=== PATIENT | male | born 1945 | race Caucasian/White ===

== ENCOUNTER 2019-10-09 23:11 | Inpatient (IN) | payer MEDICARE, SELFPAY ==
--- NOTE | ~2019-10-09 | CT_ITS ---
EXAMINATION: CT chest abdomen pelvis wo con EXAM DATE: 10/10/2019 10:14 INDICATION: Nausea vomiting. Distended abdomen. Diarrhea. Burping and Belching. TECHNIQUE: Spiral CT of the chest, abdomen and pelvis was performed without contrast. Axial, kim l and sagittal images were reviewed. Coronal maximum intensity pixel images of chest reviewed. The dose-length product (DLP) for this examination was 1579.29 mGy-cm. The exposure was tailored accordi ng to patient size (auto mA exposure control), and iterative reconstruction (ASIR) was used as additi onal dose reduction technique. There is no prior study for comparison. FINDINGS: CHEST: The lungs are clear. Trace bilateral pleural effusions and trace pericardial effusion. Tra cheobronchial tree is patent. There is no mediastinal, hilar or axillary lymphadenopathy. There i s no pneumothorax. Heart normal in size. There is minimal coronary arterial calcification, arteri al sclerosis. 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 There is hepa tic steatosis. Spleen, pancreas, left adrenal gland are unremarkable. Gallbladder is unremarkable. No biliary obstruction. Bilateral renal cortical thinning, atrophy. Exophytic right renal lesion lik diane proteinaceous cyst measuring about 1.5 cm along the superior pole, unchanged compared to CT chest from 2016. There is 4.6 cm left renal lesion consistent with cyst. Small to moderate-sized bilateral inguinal fat-containing hernias. The prostate is unremarkable. The bladder is unremarkable. There is no retroperitoneal or pelvic lymphadenopathy. There is mild scattered arteriosclerotic disease. The appendix is not positively visualized. There is no pericecal inflammatory change to suggest appe ndicitis. The stomach and small bowel are unremarkable. There is colonic fluid, correlate for diar olimpia. There is mild scattered colonic diverticulosis. There is no adjacent inflammatory change to newton ggest diverticulitis. No free intraperitoneal gas. There are no osteoblastic or osteolytic lesions identified. IMPRESSION: 1. Colonic fluid. Consider enteritis. Correlate for diarrhea. 2. Right adrenal myelolipoma. 3. Small to moderate inguinal fat-containing hernias. 4. Scattered colonic diverticulosis. 5. Trace effusions. Reviewed, dictated and finalized at location A. TH AND SAFETY TECHNICIAN
--- NOTE | ~2019-10-09 | XR_ITS ---
EXAMINATION: XR chest 1V portable DATE: 10/09/2019 23:37 INDICATION: COPD presenting with shortness of breath TECHNIQUE: frontal view of the chest was obtained. COMPARISON: Chest radiograph dated 08/10/2017 FINDINGS: The lungs remain clear with no focal airspace opacities, pulmonary edema, pleural effusion or pneumot horax. The cardiomediastinal silhouette is normal. Fusion anteriorly of the right first and second ri bs. IMPRESSION: 1. No acute cardiopulmonary disease. Reviewed, dictated and finalized at location A. NESS INFORMATION ANALYST
--- NOTE | ~2019-10-09 | CT_ITS ---
EXAMINATION: CT abdomen pelvis wo con DATE: 10/13/2019 09:43 INDICATION: Abdominal distention. Constipation. TECHNIQUE: Computed tomography (CT) of the abdomen and pelvis was performed without intravenous contr ast. Automated exposure control and iterative reconstruction technique were employed. The dose-length product was 1245.70 mGy-cm. COMPARISON: CT abdomen and pelvis 10/10/2019 FINDINGS: The visualized portions of the lung bases demonstrate small pleural effusions and mild depe ndent atelectasis. The heart size is normal. There is a small pericardial effusion. There is diffuse hepatic steatosis. The spleen, gallbladder, pancreas, and left adrenal gland are normal. There is a 2 .0 cm mass of fat in right adrenal gland, consistent with a myelolipoma. There are cysts in the kidne ys measuring up to 5.1 cm in left kidney. There is no urolithiasis. There is prominent fat in the ing uinal canals that may be hernias. There is diverticulosis of the colon without evidence of diverticul itis. The appendix is normal. There are no dilated loops of bowel. There are no pathologically enlarg ed lymph nodes. There is no free intraperitoneal fluid. There is severe lower lumbar spondylosis. IMPRESSION: 1. Small pleural effusions. 2. Small pericardial effusion. 3. Diffuse hepatic steatosis. 4. Symmetric prominent fat in the inguinal canals that may be hernias. Reviewed, dictated and finalized at location A. OND GRINDER
--- NOTE | ~2019-10-09 | US_ITS ---
EXAMINATION: US retroperitoneal comp DATE: 10/10/2019 16:34 INDICATION: Bilateral renal lesions and renal cortical thinning TECHNIQUE: Multiple ultrasound grayscale images of the kidneys were obtained. COMPARISON: CT dated 10/10/2019 and 03/14/2016 FINDINGS: The right kidney measures 11.6 x 5.8 x 7.7 cm. The left kidney measures 11.5 x 5.7 x 6.3 cm. The kidn eys demonstrate normal echogenicity. 4.2 cm anechoic exophytic cyst at the lower pole of the left kid daisy. The smaller exophytic lesions at the upper pole of the right kidney on prior CT with fluid atten uation on an earlier contrast enhanced CT dated 03/14/2016 is not identified. There is no hydronephros is in either kidney. No stones identified. The bladder is normal. IMPRESSION: 1. Hydronephrosis. 2. 4.2 cm left renal cyst. The smaller exophytic cyst at the upper pole of the right kidney seen on p rior CT is not identified on the provided images. Reviewed, dictated and finalized at location A. NHOUSE MANAGER IMPRESSION: 1. Hydronephrosis. 2. 4.2 cm left renal cyst. The smaller exophytic cyst at the upper pole of the right kidney seen on prior CT is not identified on the provided images.
--- NOTE | 2019-10-09 23:30 | ECG_ITS ---
Measurements Intervals [place] Rate: 128 P: ME: 0 QRS: -20 QRSD: 97 T: 18 QT: 286 QTc: 418 Interpretive Statements SINUS TACHYCARDIA DELAYED PRECORDIAL R/S TRANSITION ABNORMAL ECG Electronically Signed On 10-10-2019 7:04:53 MAIL LIST PROCESSOR by Moy Jesus D.O.
[2019-10-09 23:50] VITALS: BP 112/69; PULSE 134; PULSE 135; RESP 20; TEMP 36.6; O2SAT 100
[2019-10-09 23:51] LABS: Basophils Absolute Auto 0.05 K/mm3 (0.00-0.10); Basophils Percent Auto 0.3 % (0.0-1.0); Eosinophils Absolute Auto 0.06 K/mm3 (0.02-0.50); Eosinophils Percent Auto 0.4 % (1.0-6.0); Hematocrit 42.8 % (37.0-46.0); Hemoglobin 14.2 g/dL (12.4-15.3); Immature Granulocyte Absolute 0.09 K/mm3 (0.00-0.00); Immature Granulocyte Percent A 0.6 % (0.0-0.0); Lymphocytes Absolute Auto 0.77 K/mm3 (1.10-4.50); Lymphocytes Percent Auto 5.2 % (18.0-42.0); Mean Corpuscular HGB Conc 33.2 g/dL (32.0-36.0); Mean Corpuscular Hemoglobin 30.5 pg (27.0-31.0); Mean Platelet Volume 10.2 fl (8.7-11.0); Monocytes Absolute Auto 0.36 K/mm3 (0.10-0.90); Monocytes Percent Auto 2.4 % (2.0-11.0); Neutrophils Absolute Auto 13.6 K/mm3 (1.7-7.2); Neutrophils Percent Auto 91.1 % (50.0-70.0); Platelet Count Result 292 K/mm3 (150-420); Red Blood Count 4.65 M/mm3 (4.70-6.10); Red Cell Distribution Width 13.4 % (11.6-14.4); White Blood Count 14.9 K/mm3 (4.8-10.8)
[2019-10-09] MEDS: methylPREDNISolone SOD SUCC 125 MG VIAL IV PUSH (23:55)
[2019-10-09] MEDS: ONDANSETRON INJ 4 MG/2 ML VIAL IV PUSH (23:55)
[2019-10-10] VITALS (18 sets, daily range): BP systolic 90–136; BP diastolic 51–70; PULSE 94–128; RESP 16–20; TEMP 36.2–37.2; O2SAT 91–98; BMI 35.3
[2019-10-10] MEDS: IPRATROPIUM 0.5 MG/ALBUTEROL SULFATE 2.5 MG AMPUL.NEB 3 ML INHALATION ×4 (00:02→18:20)
[2019-10-10] MEDS: SODIUM CHLORIDE 0.9% IV 1,000 ML 999 ML IV CONT ×2 (00:03→01:25)
[2019-10-10 00:10] LABS: BNP 125 pg/mL (0-100)
[2019-10-10 00:21] LABS: Lactic Acid 7.1 mmol/L (0.4-2.0)
[2019-10-10 00:27] LABS: Alanine Aminotransferase 74 U/L (16-63); Albumin Level 3.7 g/dL (3.4-5.0); Alkaline Phosphatase 36 U/L (46-116); Anion Gap 20.8 mmol/L (7-16); Aspartate Amino Transferase 37 U/L (15-37); Bilirubin,Total 0.9 mg/dL (0.00-1.00); Blood Urea Nitrogen 18 mg/dL (7-18); Carbon Dioxide 23 mmol/L (21-32); Chloride 101 mmol/L (98-108); Estimated CRCL calculation 32 ml/min; Estimated Glomerular Filt Rate 32; Glucose 175 mg/dL (70-99); Lipase 95 U/L (73-393); Osmolality Calculated 297 mOsm/kg (285-295); Potassium 3.8 mmol/L (3.5-5.1); Sodium 141 mmol/L (136-145); Total Protein 7.5 g/dL (6.4-8.2)
[2019-10-10 00:30] LABS: Thyroid Stimulating Hormone 4.48 uIU/mL (0.36-3.74); Troponin I < 0.02 ng/mL (0.00-0.056)
[2019-10-10 00:45] LABS: Influenza Control Valid (Valid)
--- NOTE | 2019-10-10 01:05 | ED.NAVMDI ---
HPI - Nausea/Vomiting/Diarrhea General Chief complaint: Nausea/Vomiting/Diarrhea Stated complaint: Nausea, Vomiting Source: patient and EMS Limitations: no limitations History of Present Illness HPI Narrative: This is a 74-year-old male other presents via EMS to the emergency department with sudden onset of diarrhea with nausea vomiting crampy abdominal pain has been having low-grade fever and chills with weakness started earlier this evening, does have a history of COPD/asthma history of diabetes and hypertension. The patient denies chest pain but is having some mild shortness of breath with a cough that is mildly productive of white sputum. MD elicited complaint: nausea, vomiting, diarrhea and abdominal pain Onset (ago): hour(s) Description of vomiting: watery Description of diarrhea: watery Associated nausea: Yes Associated abdominal pain: Yes Location of pain: diffuse Severity: moderate Quality: cramping Exacerbating factors: bowel movement and vomiting Relieving factors: none Context: recent antibiotic use Associated symptoms: fever/chills and nausea/vomiting Related Data Home Medications Medication Instructions Recorded Confirmed albuterol sulfate 90 mcg/actuation 2 puff INHALATION BID 09/04/19 10/09/19 aerosol inhaler alprazolam 0.5 mg tablet 0.5 mg PO DAILY 09/04/19 10/09/19 cyclobenzaprine 10 mg tablet 10 mg PO PRN PRN 09/04/19 10/09/19 finasteride 5 mg tablet 5 mg PO DAILY 09/04/19 10/09/19 fluticasone 250 mcg-salmeterol 50 1 inhalation INHALATION BID 09/04/19 10/09/19 mcg/dose blistr powdr for inhalation fluticasone propionate 50 2 spray NASAL BID 09/04/19 10/09/19 mcg/actuation nasal spray,suspension furosemide 40 mg tablet 40 mg PO QAM 09/04/19 10/09/19 glimepiride 2 mg tablet 2 mg PO QAM 09/04/19 10/09/19 hydrochlorothiazide 12.5 mg tablet 12.5 mg PO DAILY 09/04/19 10/09/19 ipratropium bromide 42 mcg (0.06 2 spray NASAL BID ml 09/04/19 10/09/19 %) nasal spray losartan 25 mg tablet 25 mg PO DAILY 09/04/19 10/09/19 meloxicam 15 mg tablet 15 mg PO HS 09/04/19 10/09/19 montelukast 10 mg tablet 10 mg PO DAILY 09/04/19 10/09/19 omeprazole 40 mg capsule,delayed 40 mg PO DAILY 09/04/19 10/09/19 release potassium chloride 10 mEq 10 meq PO DAILY 09/04/19 10/09/19 capsule,extended release prednisolone 5 mg tablet 5 mg PO DAILY 09/04/19 10/09/19 terazosin 10 mg capsule 10 mg PO DAILY 09/04/19 10/09/19 testosterone cypionate 200 mg/mL 200 mg IM MONTHLY 09/04/19 10/09/19 intramuscular oil Allergies Allergy/AdvReac Type Severity Reaction Status Date / Time shellfish derived Allergy Mild Unknown Verified 09/08/19 14:24 Review of Systems Review of Systems: All systems reviewed & are unremarkable except as noted in HPI and below PMFSH Past Medical History Medical History Asthma GERD (gastroesophageal reflux disease) Hyperlipidemia Obstructive sleep apnea Shortness of breath Type 2 diabetes mellitus Exam Const: General: no acute distress and alert Nutritional Appearance: obese Orientation/consciousness: patient oriented x3 HENMT: Head: normal to inspection Eyes: Cornea: corneas normal Pupils: Equal, round and reactive pupils present Neck: Neck: normal visual inspection and no lymphadenopathy Chest: Chest palpation & inspection: normal inspection of the chest Resp: Auscultation: wheezes Cardio: Rate: regular rate and tachycardic GI: GI Palp: Yes Tenderness to palpation present (GI) Percussion: Yes normal to percussion : Testes: Testes normal Back/Spine/Pelvis: Back: no CVA tenderness Skin: General skin exam: normal color Rashes: no rashes Neuro: General: patient oriented x3, moves all extremities and no meningeal signs Extrem: General: normal to inspection Psych: Appearance: grossly normal Mental Status: mental status grossly normal Course Vital Signs Vital signs: Vital Signs Temperature 36.6 C
[2019-10-10 01:28] LABS: Add Urine Microscopic? YES; Appearance Urine Sl Cloudy (Clear); Bilirubin Urine Negative (Negative); Blood Urine Negative (Negative); Color Urine Yellow (Yellow); Glucose Urine UA Negative (Negative); Ketones Urine Trace (Negative); Leukocyte Esterase Ur Negative LEU/UL (Negative); Nitrate Urine Negative (Negative); Protein Urine 2+ (Negative); Urobilinogen Urine 0.2 mg/dL (0.2-1.0)
[2019-10-10 01:35] LABS: Bacteria Urine Trace /hpf; RBC Urine 0-2 /hpf (0-2); Squamous Epithelial Cell Urine None seen /hpf (Few)
--- NOTE | 2019-10-10 01:39 | PC.NURSE ---
Call placed to floor for bed assignment for admit to tele.
--- NOTE | 2019-10-10 02:00 | ADMGEN ---
This patient, Cielo Lainez, was admitted to 2nd Floor Room 203-2. Patient oriented to hospital policies and general routines including ID bracelet, bed and alarms, visiting hours, pain management, procedures, bathroom and other care routines, personal items, smoking policy, room service/diet, and visiting hours. Information on how to activate the Rapid Response Team has been discussed. Patient encouraged to report perceived risks to care and to ask questions if they do not understand what they are told or what they should do.
[2019-10-10] MEDS: SODIUM CHLORIDE 0.9% IV 1,000 ML 100 ML IV CONT ×2 (02:38→13:00)
[2019-10-10 07:57] LABS: Glucose Point of Care 196 (65-105)
[2019-10-10 08:31] LABS: Basophils Absolute Auto 0.02 K/mm3 (0.00-0.10); Basophils Percent Auto 0.1 % (0.0-1.0); Hematocrit 38.5 % (37.0-46.0); Immature Granulocyte Absolute 0.08 K/mm3 (0.00-0.00); Immature Granulocyte Percent A 0.5 % (0.0-0.0); Lymphocytes Absolute Auto 0.27 K/mm3 (1.10-4.50); Lymphocytes Percent Auto 1.6 % (18.0-42.0); Mean Corpuscular HGB Conc 33.8 g/dL (32.0-36.0); Mean Corpuscular Hemoglobin 30.9 pg (27.0-31.0); Mean Corpuscular Volume 91.4 fL (78.0-102.0); Mean Platelet Volume 9.7 fl (8.7-11.0); Monocytes Absolute Auto 0.17 K/mm3 (0.10-0.90); Neutrophils Absolute Auto 16.8 K/mm3 (1.7-7.2); Neutrophils Percent Auto 96.8 % (50.0-70.0); Platelet Count Result 240 K/mm3 (150-420); Red Blood Count 4.21 M/mm3 (4.70-6.10); Red Cell Distribution Width 13.7 % (11.6-14.4); White Blood Count 17.3 K/mm3 (4.8-10.8)
[2019-10-10 08:46] LABS: Alanine Aminotransferase 70 U/L (16-63); Albumin Level 3.2 g/dL (3.4-5.0); Alkaline Phosphatase 28 U/L (46-116); Anion Gap 16.2 mmol/L (7-16); Aspartate Amino Transferase 42 U/L (15-37); Bilirubin,Total 0.6 mg/dL (0.00-1.00); Blood Urea Nitrogen 23 mg/dL (7-18); Calcium 7.8 mg/dL (8.5-10.1); Carbon Dioxide 23 mmol/L (21-32); Chloride 104 mmol/L (98-108); Estimated CRCL calculation 33 ml/min; Estimated Glomerular Filt Rate 34; Glucose 200 mg/dL (70-99); Osmolality Calculated 297 mOsm/kg (285-295); Potassium 4.2 mmol/L (3.5-5.1); Sodium 139 mmol/L (136-145); Total Protein 6.9 g/dL (6.4-8.2)
[2019-10-10 08:49] LABS: Lactic Acid Reflex 2.5 mmol/L (0.4-2.0)
--- NOTE | 2019-10-10 08:55 | ECG_ITS ---
Measurements Intervals [place] Rate: 110 P: 55 MS: 158 QRS: 23 QRSD: 101 T: 27 QT: 325 QTc: 440 Interpretive Statements SINUS TACHYCARDIA BORDERLINE R WAVE PROGRESSION, ANTERIOR LEADS BASELINE ARTIFACT- I, II, III ABNORMAL ECG Electronically Signed On 10-10-2019 11:28:36 ANTIQUE CLOCKS REPAIRER by Moy Jesus D.O.
[2019-10-10 09:36] LABS: Reflex Lactic Acid Yes or No Add Lactic
[2019-10-10 09:40] LABS: Troponin I < 0.02 ng/mL (0.00-0.056)
[2019-10-10] MEDS: FLUTICASONE PROPIONATE 0.05% NA SPR 16 GM BTL (*BKC) 2 SPRAY NASAL ×2 (09:50→17:15)
[2019-10-10] MEDS: SALMET XINAFT/FLUTIC PROPIN 250 MCG/50 MCG INH CAP 1 PUFF INHALATION ×2 (09:55→17:15)
--- NOTE | 2019-10-10 10:16 | PC.NURSE ---
Patient transported back to floor
[2019-10-10] MEDS: IPRATROPIUM NASAL SPRAY 0.06% 15 ML BOTTLE 2 SPRAY NASAL ×2 (10:24→17:15)
--- NOTE | 2019-10-10 10:52 | PC.NURSE ---
Pt walked 2 laps around second floor with standby assist of RN. Pt started belching some near the end of the second lap. Pt returned to room, to recliner. Feet up, call dasilva in reach. IV infusing as ordered. Pt remains NPO. Reminded to call with needs.
--- NOTE | 2019-10-10 10:55 | PC.NURSE ---
Pt walked two laps around second floor with standby assist of RN. Pt tolerated well, started belching some near the end of the walk. Back to room and in recliner, feet elevated. IV fluids infusing as ordered. Pt remains NPO. Call dasilva in reach, reminded to call with needs.
[2019-10-10] MEDS: PANTOPRAZOLE SODIUM IV 40 MG VIAL IV PUSH ×2 (11:15→21:01)
[2019-10-10 11:37] LABS: Glucose Point of Care 186 (65-105)
[2019-10-10 11:42] LABS: Magnesium 1.6 mg/dL (1.8-2.4); Phosphorus 2.3 mg/dL (2.6-4.7)
[2019-10-10 11:54] LABS: Lactic Acid 2.4 mmol/L (0.4-2.0)
--- NOTE | 2019-10-10 12:40 | PM.IMHP ---
H&P: HPI History of Present Illness Chief complaint: Nausea, Vomiting Narrative: Cielo Lainez is a 74 year old male who present to the ED via EMS with sudden onset of diarrhea with nausea, vomiting, and crampy abdominal pain. He has been having low-grade fever and chills with weakness that started earlier yesterday evening. He told me that he had continuous diarrhea from 8pm to 9pm without relief and that is what made him come in to the ED. He claims that he is always having episodes of abdominal distension, but that he usually treats himself and stays home. He reports that his diarrhea did not contain blood, but was dark, gravy-like, and watery. He reports that his last normal and formed BM was 2 days ago, on Sunday. He did report having some LLQ pain prior to the diarrhea starting. He did have recent antibiotic use and reported taking antibiotic for Sinus infection recently. His last colonoscopy was over 5 years ago and reports that 1 polyp was removed. He also had umbilical hernia surgery more than 5 years ago. He does have a history of COPD with asthma, diabetes and hypertension. The patient denies chest pain but is having some mild shortness of breath with a cough that is mildly productive of white sputum. Review of Systems Review of Systems: All systems reviewed & are unremarkable except as noted in HPI and below Constitutional: Constitutional: Reports as per HPI, Reports chills and Reports weakness Eyes: Eyes: Reports as per HPI and Reports no additional eye complaints ENT: Reports system reviewed and no additional complaints, except as documented, Reports as per HPI, Reports Normal hearing present, Reports nasal congestion and Reports nasal discharge Cardiovascular: Cardiovascular: Reports as per HPI, Denies chest pain, Denies pedal edema, Denies leg edema, Denies lightheadedness and Reports palpitations Respiratory: Respiratory: Reports as per HPI, Reports chest congestion, Reports cough, Denies hemoptysis, Reports dyspnea on exertion and Denies wheezing Gastrointestinal: Gastrointestinal: Reports as per HPI, Reports abdominal pain, Denies melena, Reports bloating, Denies hematochezia, Denies constipation, Reports heartburn, Denies diarrhea, Reports nausea, Denies vomiting and Denies hematemesis Comments: Had 2 small soft (not formed) green BMs yesterday. Stool cultures collected and processing in lab now. Genitourinary: Genitourinary: Reports no additional male genitourinary complaints, Reports as per HPI, Denies dysuria, Reports urinary frequency, Reports urinary hesitancy and Reports urinary incontinence Musculoskeletal: Musculoskeletal: Reports no additional musculoskeletal complaints, Reports as per HPI, Denies back pain, Denies arthralgias, Denies neck pain and Denies stiffness Integumentary/Breasts: Skin/Breast: Reports system reviewed and no additional complaints, except as docu, Reports as per HPI, Reports dry skin, Denies pruritus, Denies erythema, Denies rash, Denies skin pain and Denies unusual bruising Neurologic: Reports system reviewed and no additional complaints, except as documented, Reports as per HPI, Denies Abnormal speech present, Denies abnormal gait, Denies confusion, Denies vertigo, Denies headache(s) and Denies numbness Psychiatric: Psychiatric: Reports as per HPI and Reports anxiety Endocrine: Endocrine: Denies excessive sweating Allergic/Immunologic: Allergic/Immunologic: Denies wheezing PMFSH Past Medical History Medical History Asthma GERD (gastroesophageal reflux disease) Hyperlipidemia Obstructive sleep apnea Shortness of breath Type 2 diabetes mellitus Social History Social History Smoking packs per day: 2.5 Smoking cigarettes per day: 50.0 Years smoked: 30 Smoking pack-years: 75.00 Smoking status: Former smoker Tobacco type: cigarettes Smoking end date: 09/03/88 Alcohol intak
[2019-10-10 15:28] LABS: Occult Blood Negative (Negative)
--- NOTE | 2019-10-10 15:45 | PC.NURSE ---
Ultra Sound tech in room to perform ultra sound on kidneys. Patient transfered from chair to bed with sba. Transfered well.
[2019-10-10] MEDS: MAGNESIUM SULF 4 GM/WATER100ML 4 GM/100 ML BAG IVPB (15:49)
[2019-10-10 17:04] LABS: Glucose Point of Care 146 (65-105)
[2019-10-10] MEDS: SACCHAROMYCES BOULARDII 250 MG CAPSULE PO (18:21)
[2019-10-10] MEDS: SODIUM CHLORIDE 0.9% IV 500 ML IV CONT (18:28)
[2019-10-10] MEDS: SODIUM CHLORIDE 0.9% IV 1,000 ML 200 ML IV CONT (19:38)
[2019-10-10 21:06] LABS: Glucose Point of Care 148 (65-105)
--- NOTE | 2019-10-10 21:08 | PC.NURSE ---
Patient resting in bed watching tv. Respirations even and unlabored. Denies nausea, vomiting or abdominal pain. Abdomen firm and distrended, but non-tender. Denies pain/complaints/needs @ this time. IV NS infusing without difficulty. No distress noted. Call light and personal belongings within reach.
--- NOTE | 2019-10-10 21:52 | PC.NURSE ---
Patient resting in bed. Denies pain/complaints/needs @ this time. Respirations even and unlabored. Abdomen remains distended but patient denies tenderness. Urinal emptied of clear yellow urine. No distress noted. Call light and personal belongings within reach.
--- NOTE | 2019-10-10 23:25 | PC.NURSE ---
Patient appears to be sleeping by the rise and fall of his chest. IV NS infusing without difficulty. No distress noted. Call light in reach.
[2019-10-11] VITALS (13 sets, daily range): BP systolic 127–142; BP diastolic 65–77; PULSE 80–102; RESP 16–22; TEMP 36.2–36.7; O2SAT 95–98
[2019-10-11] MEDS: IPRATROPIUM 0.5 MG/ALBUTEROL SULFATE 2.5 MG AMPUL.NEB 3 ML INHALATION ×4 (00:03→18:10)
--- NOTE | 2019-10-11 01:10 | PC.NURSE ---
Patient appears to be sleeping by the rise and fall of his chest. Respirations even and unlabored. IV NS infusing without difficulty to site in right hand. No distress noted. Call light in reach.
[2019-10-11] MEDS: SODIUM CHLORIDE 0.9% IV 1,000 ML 200 ML IV CONT ×2 (01:26→08:24)
[2019-10-11 05:36] LABS: Hematocrit 33.7 % (37.0-46.0); Hemoglobin 11.3 g/dL (12.4-15.3); Mean Corpuscular HGB Conc 33.5 g/dL (32.0-36.0); Mean Corpuscular Hemoglobin 30.9 pg (27.0-31.0); Mean Corpuscular Volume 92.1 fL (78.0-102.0); Mean Platelet Volume 9.3 fl (8.7-11.0); Platelet Count Result 207 K/mm3 (150-420); Red Blood Count 3.66 M/mm3 (4.70-6.10); Red Cell Distribution Width 14.3 % (11.6-14.4); White Blood Count 13.8 K/mm3 (4.8-10.8)
[2019-10-11 05:56] LABS: Lactic Acid 2.7 mmol/L (0.4-2.0)
[2019-10-11] MEDS: LEVOTHYROXINE SODIUM 12.5 MCG TABLET PO (06:02)
[2019-10-11 06:05] LABS: Alanine Aminotransferase 68 U/L (16-63); Alkaline Phosphatase 24 U/L (46-116); Anion Gap 14.7 mmol/L (7-16); Aspartate Amino Transferase 44 U/L (15-37); Bilirubin,Total 0.4 mg/dL (0.00-1.00); Blood Urea Nitrogen 30 mg/dL (7-18); Calcium 7.2 mg/dL (8.5-10.1); Carbon Dioxide 23 mmol/L (21-32); Chloride 108 mmol/L (98-108); Estimated CRCL calculation 36 ml/min; Estimated Glomerular Filt Rate 37; Glucose 119 mg/dL (70-99); Osmolality Calculated 301 mOsm/kg (285-295); Phosphorus 2.3 mg/dL (2.6-4.7); Potassium 3.7 mmol/L (3.5-5.1); Sodium 142 mmol/L (136-145); Total Protein 6.4 g/dL (6.4-8.2); Troponin I < 0.02 ng/mL (0.00-0.056)
[2019-10-11 08:03] LABS: Glucose Point of Care 115 (65-105)
--- NOTE | 2019-10-11 08:46 | PC.NURSE ---
Ambulated patient x2 around floor. Tolerated well. Clear liquid diet tolerated well.
[2019-10-11] MEDS: SODIUM CHLORIDE 0.9% IV 1,000 ML 100 ML IV CONT ×2 (09:14→17:01)
[2019-10-11] MEDS: IPRATROPIUM NASAL SPRAY 0.06% 15 ML BOTTLE 2 SPRAY NASAL ×2 (09:15→16:55)
[2019-10-11] MEDS: PANTOPRAZOLE SODIUM IV 40 MG VIAL IV PUSH ×2 (09:15→21:05)
[2019-10-11] MEDS: TERAZOSIN HCL 5 MG CAPSULE 10 MG PO (09:15)
[2019-10-11] MEDS: LORATADINE 10 MG TABLET PO (09:16)
[2019-10-11] MEDS: FINASTERIDE 5 MG TABLET PO (09:16)
[2019-10-11] MEDS: predniSONE 5 MG TABLET PO (09:16)
[2019-10-11] MEDS: POTASSIUM/PHOSPHORUS/SODIUM 1.5 GM PACKET 1 PACKET PO (09:16)
[2019-10-11] MEDS: LOSARTAN POTASSIUM 25 MG TABLET PO (09:16)
[2019-10-11] MEDS: GLIMEPIRIDE 2 MG TABLET PO (09:16)
[2019-10-11] MEDS: MONTELUKAST SODIUM 10 MG TABLET PO (09:16)
[2019-10-11] MEDS: SACCHAROMYCES BOULARDII 250 MG CAPSULE PO ×2 (09:17→16:54)
[2019-10-11] MEDS: SALMET XINAFT/FLUTIC PROPIN 250 MCG/50 MCG INH CAP 1 PUFF INHALATION ×2 (09:19→16:56)
[2019-10-11] MEDS: FLUTICASONE PROPIONATE 0.05% NA SPR 16 GM BTL (*BKC) 2 SPRAY NASAL ×2 (09:21→16:54)
--- NOTE | 2019-10-11 09:25 | PM.IMPN ---
Progress Note: A&P Assessment and Plan (1) Sepsis: Qualifiers: Hepatic coma status: without hepatic coma Sepsis acute organ dysfunction status: with acute organ dysfunction Sepsis type: sepsis due to unspecified organism Severe sepsis acute organ dysfunction type: acute liver failure Severe sepsis shock status: without septic shock Qualified Code(s): A41.9 - Sepsis, unspecified organism; R65.20 - Severe sepsis without septic shock; K72.00 - Acute and subacute hepatic failure without coma <Kerline Paul NP - Last Filed: 10/11/19 14:34> Code(s): A41.9 - Sepsis, unspecified organism <Kerline Paul NP - Last Filed: 10/11/19 14:34> Status: Acute <Kerline Paul NP - Last Filed: 10/11/19 14:34> Assessment and Plan: Encouraged incentive spirometer. Started on IV Zosyn now due to concern for possible bowel perforation, pending CT results. Nausea and vomiting now controlled. Crampy and gassy abdominal pain persists. Ordered NG placement, after 3 attempts, unable due to previous Sinus reconstruction surgery No fevers noted. WBC was 14.9 at admission, then 17.3, and now 13.8 today. Repeating labs in morning. Patient reports 2 small soft BMs since admission and another moderate sized BM today. Weakness has resolved - he is ambulating around entire 2nd floor of hospital today with no difficulties. Persistent abdominal distension, Ordered stool CDiff culture (no toxin present) and other stool cultures remain pending. LLQ pain resolved. Gave patient referral to Colorectal physician for getting colonoscopy completed and to F/U with. Changed to NPO status and increased his IVFs from 100ml/hr to 200 ml/hr. <Kerline Paul NP - Last Filed: 10/11/19 14:34> (2) Diarrhea: Qualifiers: Diarrhea type: unspecified type Qualified Code(s): R19.7 - Diarrhea, unspecified <Kerline Pual NP - Last Filed: 10/11/19 14:34> Code(s): R19.7 - Diarrhea, unspecified <Kerline Paul NP - Last Filed: 10/11/19 14:34> Status: Acute <Kerline Paul NP - Last Filed: 10/11/19 14:34> Assessment and Plan: continuous diarrhea has RESOLVED. Stool cultures ordered and collected. C-Diff + antigen and negative for Toxin. So not an active/current C.Diff infection. Added Probiotics to his medication regime. Completed patient education regarding how C.Diff infections occur, discussed eating yogurt and taking probiotics at home, and discussed patient's history of antibiotic use. Stool occult (-) negative for blood. <Kerline Paul NP - Last Filed: 10/11/19 14:34> (3) Abdominal distension: Code(s): R14.0 - Abdominal distension (gaseous) <Kerline Paul NP - Last Filed: 10/11/19 14:34> Status: Acute <Kerline Paul NP - Last Filed: 10/11/19 14:34> Assessment and Plan: UNRESOLVED. Ordered and attempted NG tube placement on 3 occasions. But patient has had extensive sinus/nasal reconstructive surgery due to past broken nose with deviated septum, and plastic dilator remains in his left nostril. Unable to pass a 16 Jamaican or a 12 Jamaican NG tubing. Encouraged patient to start ambulating hourly. Ordered CT scan without contrast (chest, Abd, Pelvis) - no ileus or blockage noted by radiologist IVFs at 100ml/hr Tolerating Clear liquid diet. Examined a Stool of his this afternoon - appeared constipated with small pellet sized BMs. Ordered Mag Citrate x 1 to get bowels moving and decompressed. Encouraged patient to continue hourly ambulation. Started on daily Senna. <Kerline Paul NP - Last Filed: 10/11/19 14:34> (4) Acute renal failure: Code(s): N17.9 - Acute kidney failure, unspecified <Kerline Paul NP - Last Filed: 10/11/19 14:34> Status: Acute <Kerline Paul NP - Last Filed: 10/11/19 14:34> Assessment and Plan: IMPROVING. Creatinine and GFRs elevated at admissi
[2019-10-11 09:27] LABS: Magnesium 2.8 mg/dL (1.8-2.4)
[2019-10-11] MEDS: FAMOTIDINE 20 MG/ISO 50 ML 20 MG/50 ML BAG 100 MG IVPB (09:58)
--- NOTE | 2019-10-11 10:28 | PC.NURSE ---
Patient ambulating around floor, independently
[2019-10-11 11:31] LABS: Glucose Point of Care 94 (65-105)
[2019-10-11 11:55] LABS: Lactate Dehydrogenase 226 U/L (85-227)
[2019-10-11] MEDS: METOCLOPRAMIDE HCL INJ 10 MG/2 ML VIAL IV PUSH ×2 (12:52→18:10)
[2019-10-11] MEDS: MAGNESIUM CITRATE 300 ML BTL 150 ML PO (15:31)
[2019-10-11] MEDS: FAMOTIDINE 20 MG/ISO 50 ML 20 MG/50 ML BAG 50 MG IVPB (16:49)
[2019-10-11 16:54] LABS: Glucose Point of Care 66 (65-105)
[2019-10-11] MEDS: SENNA/DOCUSATE SODIUM TABLET 1 TAB PO (21:05)
[2019-10-11 21:22] LABS: Glucose Point of Care 106 (65-105)
[2019-10-12] VITALS (13 sets, daily range): BP systolic 144–169; BP diastolic 73–84; PULSE 78–104; RESP 14–20; TEMP 36.3–36.8; O2SAT 95–97
[2019-10-12] MEDS: METOCLOPRAMIDE HCL INJ 10 MG/2 ML VIAL IV PUSH ×5 (00:01→23:46)
[2019-10-12] MEDS: IPRATROPIUM 0.5 MG/ALBUTEROL SULFATE 2.5 MG AMPUL.NEB 3 ML INHALATION ×5 (00:01→23:45)
[2019-10-12] MEDS: SODIUM CHLORIDE 0.9% IV 1,000 ML 100 ML IV CONT (04:19)
[2019-10-12 05:24] LABS: Hematocrit 30.7 % (37.0-46.0); Hemoglobin 10.3 g/dL (12.4-15.3); Mean Corpuscular HGB Conc 33.6 g/dL (32.0-36.0); Mean Corpuscular Volume 92.5 fL (78.0-102.0); Mean Platelet Volume 9.7 fl (8.7-11.0); Platelet Count Result 180 K/mm3 (150-420); Red Blood Count 3.32 M/mm3 (4.70-6.10); Red Cell Distribution Width 14.3 % (11.6-14.4); White Blood Count 10.1 K/mm3 (4.8-10.8)
[2019-10-12 05:46] LABS: Lactic Acid 0.9 mmol/L (0.4-2.0)
[2019-10-12] MEDS: LEVOTHYROXINE SODIUM 25 MCG TABLET 12.5 MCG PO (06:06)
[2019-10-12 06:13] LABS: Alanine Aminotransferase 67 U/L (16-63); Albumin Level 2.8 g/dL (3.4-5.0); Alkaline Phosphatase 21 U/L (46-116); Anion Gap 15.5 mmol/L (7-16); Aspartate Amino Transferase 48 U/L (15-37); Bilirubin,Total 0.5 mg/dL (0.00-1.00); Blood Urea Nitrogen 14 mg/dL (7-18); Calcium 6.8 mg/dL (8.5-10.1); Carbon Dioxide 22 mmol/L (21-32); Chloride 110 mmol/L (98-108); Estimated CRCL calculation 56 ml/min; Estimated Glomerular Filt Rate > 60; Glucose 61 mg/dL (70-99); Osmolality Calculated 296 mOsm/kg (285-295); Potassium 3.5 mmol/L (3.5-5.1); Sodium 144 mmol/L (136-145); Total Protein 5.7 g/dL (6.4-8.2)
[2019-10-12 06:54] LABS: Glucose Point of Care 68 (65-105)
[2019-10-12] MEDS: IPRATROPIUM NASAL SPRAY 0.06% 15 ML BOTTLE 2 SPRAY NASAL ×2 (09:14→16:48)
[2019-10-12] MEDS: FLUTICASONE PROPIONATE 0.05% NA SPR 16 GM BTL (*BKC) 2 SPRAY NASAL ×2 (09:14→16:48)
[2019-10-12] MEDS: SALMET XINAFT/FLUTIC PROPIN 250 MCG/50 MCG INH CAP 1 PUFF INHALATION ×2 (09:14→16:50)
[2019-10-12] MEDS: FAMOTIDINE 20 MG/ISO 50 ML 20 MG/50 ML BAG 50 MG IVPB ×2 (09:15→16:48)
[2019-10-12] MEDS: SACCHAROMYCES BOULARDII 250 MG CAPSULE PO ×2 (09:15→16:50)
[2019-10-12] MEDS: TERAZOSIN HCL 5 MG CAPSULE 10 MG PO (09:16)
[2019-10-12] MEDS: PANTOPRAZOLE SODIUM IV 40 MG VIAL IV PUSH ×2 (09:16→21:09)
[2019-10-12] MEDS: POTASSIUM/PHOSPHORUS/SODIUM 1.5 GM PACKET 1 PACKET PO (09:16)
[2019-10-12] MEDS: LOSARTAN POTASSIUM 25 MG TABLET PO (09:16)
[2019-10-12] MEDS: MONTELUKAST SODIUM 10 MG TABLET PO (09:16)
[2019-10-12] MEDS: FINASTERIDE 5 MG TABLET PO (09:17)
[2019-10-12] MEDS: predniSONE 5 MG TABLET PO (09:17)
[2019-10-12] MEDS: GLIMEPIRIDE 2 MG TABLET PO (09:17)
[2019-10-12] MEDS: LORATADINE 10 MG TABLET PO (09:17)
--- NOTE | 2019-10-12 10:30 | PCPTNOTE ---
Pt. refused treatment this a.m. He reports that he has been walking in room without assist. Talked with Kerline Paul NP, and felt pt. is appropriate for discharge from PT.
[2019-10-12 11:25] LABS: Amylase 28 U/L (25-115); Lipase 54 U/L (73-393)
[2019-10-12 11:34] LABS: Magnesium 2.2 mg/dL (1.8-2.4)
[2019-10-12] MEDS: PSYLLIUM POWDER PACKET 1 PACKET PO (11:39)
[2019-10-12 11:47] LABS: Glucose Point of Care 55 (65-105)
[2019-10-12 11:58] LABS: Lactate Dehydrogenase 205 U/L (85-227)
[2019-10-12 12:07] LABS: BNP 108 pg/mL (0-100)
[2019-10-12 12:30] LABS: Glucose Point of Care 68 (65-105)
--- NOTE | 2019-10-12 14:22 | WPDPN ---
Progress Note: A&P Assessment and Plan (1) Sepsis: Qualifiers: Hepatic coma status: without hepatic coma Sepsis acute organ dysfunction status: with acute organ dysfunction Sepsis type: sepsis due to unspecified organism Severe sepsis acute organ dysfunction type: acute liver failure Severe sepsis shock status: without septic shock Qualified Code(s): A41.9 - Sepsis, unspecified organism; R65.20 - Severe sepsis without septic shock; K72.00 - Acute and subacute hepatic failure without coma <Kerline Paul NP - Last Filed: 10/12/19 16:26> Code(s): A41.9 - Sepsis, unspecified organism <Kerline Paul NP - Last Filed: 10/12/19 16:26> Status: Acute <Kerline Paul NP - Last Filed: 10/12/19 16:26> Assessment and Plan: Encouraged incentive spirometer. Continue on IV Zosyn , would Discharge on PO Cipro with PO Flagyl. Nausea and vomiting now controlled. No pain. Some burping and flatulence remains. Despite his frequent ambulation, clear liquid diet, and now normal lactate level and normal WBC levels; he continues to have a rounded, distended, taunt, intermittently hypoactive, and firm abdomen. notified by radiologist that we are unable to complete a Fluoroscopy small bowel follow through study or any study with barium. Will plan for a CT scan in the morning prior to discharge, after he advances to regular diet today. Will also repeat Lactic acid level in morning as well to confirm no worsening after restarting a regular diet. Today was the first day of a normal lactic level. LFTs have improved. LDH is normal. -unable to place NG due to previous Sinus reconstruction surgery No fevers noted. WBC was 14.9 at admission, then 17.3, and now 10.1 today. Repeating labs in morning. Patient reports 3 small BMs since Mag Citrate, but still not a normal formed BM. Weakness has resolved - he is ambulating around entire 2nd floor of hospital today with no difficulties. Persistent abdominal distension, Stool cultures remain pending. LLQ pain resolved. Gave patient referral to Colorectal physician for getting colonoscopy completed and to F/U with. Gave patient information to a GI physician at [place] to F/U with. IVFs stopped. <Kerline Paul NP - Last Filed: 10/12/19 16:26> (2) Diarrhea: Qualifiers: Diarrhea type: unspecified type Qualified Code(s): R19.7 - Diarrhea, unspecified <Kerline Paul NP - Last Filed: 10/12/19 16:26> Code(s): R19.7 - Diarrhea, unspecified <Kerline Paul NP - Last Filed: 10/12/19 16:26> Status: Acute <Kerline Paul NP - Last Filed: 10/12/19 16:26> Assessment and Plan: continuous diarrhea has RESOLVED. Stool cultures remain pending. C-Diff + antigen and negative for Toxin. So not an active/current C.Diff infection. Added Probiotics to his medication regime. Stool occult (-) negative for blood. Advancing diet as tolerated. Had 3 BMs today, but no normal formed BM yet. <Kerline Paul NP - Last Filed: 10/12/19 16:26> (3) Abdominal distension: Code(s): R14.0 - Abdominal distension (gaseous) <Kerline Paul NP - Last Filed: 10/12/19 16:26> Status: Acute <Kerline Paul NP - Last Filed: 10/12/19 16:26> Assessment and Plan: UNRESOLVED. Ordered and attempted NG tube placement on 3 occasions. But patient has had extensive sinus/nasal reconstructive surgery due to past broken nose with deviated septum, and plastic dilator remains in his left nostril. Unable to pass a 16 Tajik or a 12 Tajik NG tubing. Encouraged patient to start ambulating hourly. Ordered CT scan without contrast as patient's abdomen remains extremely distended, taunt, and firm; intermittently sounds are hypoactive. Advancing his diet as tolerated. Encouraged patient to continue hourly ambulation. Started on daily Senna, Pepcid, Protonix, and Daily Metamucil fiber. <Kerline Paul
[2019-10-12 16:01] LABS: Hemoglobin A1C 6.4 % (<5.7)
[2019-10-12 16:38] LABS: Glucose Point of Care 56 (65-105)
--- NOTE | 2019-10-12 21:01 | P.PNCROSS_ITS ---
Event Note Event Note Event Note: For this patient encounter, I reviewed the MARKETING MANAGER or PA documentation, treatment plan, and medical decision making; and I had [id number] time with this patient. Abdomen is distended but nontender.
--- NOTE | 2019-10-12 21:01 | PM.EVENT ---
Event Note Event Note Event Note: For this patient encounter, I reviewed the MERGERS [employer] ACQUISITIONS BANKER or PA documentation, treatment plan, and medical decision making; and I had [id number] time with this patient. Abdomen is distended but nontender.
[2019-10-12] MEDS: SENNA/DOCUSATE SODIUM TABLET 1 TAB PO (21:08)
[2019-10-12 21:14] LABS: Glucose Point of Care 54 (65-105)
[2019-10-12 21:35] LABS: Glucose 63 mg/dL (70-99)
[2019-10-12 21:54] LABS: Glucose Point of Care 46 (65-105)
[2019-10-12 22:32] LABS: Glucose Point of Care 67 (65-105)
[2019-10-12 23:07] LABS: Glucose Point of Care 66 (65-105)
--- NOTE | 2019-10-12 23:09 | PC.NURSE ---
MD NOTIFIED OF PATIENT'S CONSISTENTLY LOW BLOOD SUGAR READINGS. MD STATES TO GIVE THE PATIENT SOMETHING HIGH IN FAT LIKE PEANUT BUTTER AND CRACKERS. ALSO STATES THAT PT IS ON A LONG ACTING PO HYPOGLYCEMIC THAT HAS NOT BEEN FULLY METABOLIZED OUT OF HIS SYSTEM YET.
[2019-10-13] VITALS: BP 144/73; PULSE 94; RESP 12; TEMP 36.3; O2SAT 96
[2019-10-13 00:19] LABS: Glucose 60 mg/dL (70-99)
[2019-10-13 00:21] LABS: Glucose Point of Care 63 (65-105)
[2019-10-13] MEDS: DEXTROSE 50% 25 GM/50 ML SYRINGE IV PUSH (01:10)
[2019-10-13 01:31] LABS: Glucose Point of Care 106 (65-105)
[2019-10-13 03:03] LABS: Glucose Point of Care 74 (65-105)
[2019-10-13] MEDS: IPRATROPIUM 0.5 MG/ALBUTEROL SULFATE 2.5 MG AMPUL.NEB 3 ML INHALATION (05:44)
[2019-10-13 05:45] VITALS: PULSE 100; RESP 18
[2019-10-13 05:52] VITALS: PULSE 99; RESP 16
[2019-10-13] MEDS: METOCLOPRAMIDE HCL INJ 10 MG/2 ML VIAL IV PUSH ×2 (06:19→12:45)
[2019-10-13] MEDS: LEVOTHYROXINE SODIUM 25 MCG TABLET 12.5 MCG PO (06:19)
[2019-10-13] MEDS: DEXTROSE 5%/0.45% SOD CHL 1,000 ML 100 ML IV CONT (06:38)
[2019-10-13 07:04] LABS: Glucose Point of Care 58 (65-105)
[2019-10-13 07:37] VITALS: BP 166/80; PULSE 93; RESP 18; TEMP 36.7; O2SAT 96
--- NOTE | 2019-10-13 07:41 | PC.NURSE ---
Sitting in chair at this time, denies needs, skin warm and dry, fluids infusing
[2019-10-13 08:41] LABS: Hematocrit 32.3 % (37.0-46.0); Mean Corpuscular HGB Conc 34.1 g/dL (32.0-36.0); Mean Corpuscular Hemoglobin 31.2 pg (27.0-31.0); Mean Corpuscular Volume 91.5 fL (78.0-102.0); Mean Platelet Volume 9.3 fl (8.7-11.0); Platelet Count Result 198 K/mm3 (150-420); Red Blood Count 3.53 M/mm3 (4.70-6.10); Red Cell Distribution Width 14.3 % (11.6-14.4)
[2019-10-13 08:51] LABS: Alanine Aminotransferase 89 U/L (16-63); Alkaline Phosphatase 28 U/L (46-116); Anion Gap 14.3 mmol/L (7-16); Aspartate Amino Transferase 62 U/L (15-37); Bilirubin,Total 0.8 mg/dL (0.00-1.00); Blood Urea Nitrogen 11 mg/dL (7-18); Calcium 7.5 mg/dL (8.5-10.1); Carbon Dioxide 24 mmol/L (21-32); Chloride 105 mmol/L (98-108); Estimated CRCL calculation 56 ml/min; Estimated Glomerular Filt Rate > 60; Glucose 87 mg/dL (70-99); Osmolality Calculated 288 mOsm/kg (285-295); Potassium 3.3 mmol/L (3.5-5.1); Sodium 140 mmol/L (136-145); Total Protein 6.2 g/dL (6.4-8.2)
[2019-10-13] MEDS: FLUTICASONE PROPIONATE 0.05% NA SPR 16 GM BTL (*BKC) 2 SPRAY NASAL ×2 (08:58→18:00)
[2019-10-13] MEDS: SALMET XINAFT/FLUTIC PROPIN 250 MCG/50 MCG INH CAP 1 PUFF INHALATION ×2 (08:58→18:00)
[2019-10-13] MEDS: TERAZOSIN HCL 5 MG CAPSULE 10 MG PO (08:58)
[2019-10-13] MEDS: IPRATROPIUM NASAL SPRAY 0.06% 15 ML BOTTLE 2 SPRAY NASAL ×2 (08:58→18:00)
[2019-10-13] MEDS: FINASTERIDE 5 MG TABLET PO (08:59)
[2019-10-13] MEDS: LOSARTAN POTASSIUM 25 MG TABLET PO (08:59)
[2019-10-13] MEDS: predniSONE 5 MG TABLET PO ×2 (08:59→12:45)
[2019-10-13] MEDS: SACCHAROMYCES BOULARDII 250 MG CAPSULE PO ×2 (09:00→18:00)
[2019-10-13] MEDS: LORATADINE 10 MG TABLET PO (09:00)
[2019-10-13] MEDS: MONTELUKAST SODIUM 10 MG TABLET PO (09:00)
--- NOTE | 2019-10-13 09:06 | PC.NURSE ---
To imaging via wheel chair
--- NOTE | 2019-10-13 09:35 | PC.NURSE ---
Returned from therapy
[2019-10-13] MEDS: FAMOTIDINE 20 MG/ISO 50 ML 20 MG/50 ML BAG 50 MG IVPB (09:47)
[2019-10-13] MEDS: PANTOPRAZOLE SODIUM IV 40 MG VIAL IV PUSH ×2 (09:47→20:57)
[2019-10-13] MEDS: POTASSIUM/PHOSPHORUS/SODIUM 1.5 GM PACKET 1 PACKET PO (09:48)
[2019-10-13] MEDS: PSYLLIUM POWDER PACKET 1 PACKET PO (09:48)
[2019-10-13 11:15] LABS: Glucose Point of Care 93 (65-105)
--- NOTE | 2019-10-13 11:15 | PC.NURSE ---
Bedside glucose completed 97, denies needs, fluids discontinued
[2019-10-13] MEDS: POTASSIUM CHLORIDE 20 MEQ TABLET 40 MEQ PO (11:20)
[2019-10-13 12:11] LABS: Glucose Point of Care 85 (65-105)
--- NOTE | 2019-10-13 12:25 | P.PNIM_ITS ---
Progress Note: A&P Assessment and Plan (1) Sepsis: Qualifiers: Hepatic coma status: without hepatic coma Sepsis acute organ dysfunction status: with acute organ dysfunction Sepsis type: sepsis due to unspecified organism Severe sepsis acute organ dysfunction type: acute liver failure Severe sepsis shock status: without septic shock Qualified Code(s): A41.9 - Sepsis, unspecified organism; R65.20 - Severe sepsis without septic shock; K72.00 - Acute and subacute hepatic failure without coma Code(s): A41.9 - Sepsis, unspecified organism Status: Acute Assessment and Plan: RESOLVED. Encouraged incentive spirometer. Continue on IV Zosyn , would Discharge on PO Cipro with PO Flagyl. Nausea and vomiting now controlled. No pain. Some burping and flatulence remains. Despite his frequent ambulation, clear liquid diet, and now normal lactate level and normal WBC levels; he continues to have a rounded, distended, taunt, intermittently hypoactive, and firm abdomen. notified by radiologist that we are unable to complete a Fluoroscopy small bowel follow through study or any study with barium. Will plan for a CT scan in the morning prior to discharge, after he advances to regular diet today. Will also repeat Lactic acid level in morning as well to confirm no worsening after restarting a regular diet. Today was the first day of a normal lactic level. LFTs have improved. LDH is normal. -unable to place NG due to previous Sinus reconstruction surgery No fevers noted. WBC was 14.9 at admission, then 17.3, and now 10.1 today. Repeating labs in morning. Patient reports 3 small BMs since Mag Citrate, but still not a normal formed BM. Weakness has resolved - he is ambulating around entire 2nd floor of hospital today with no difficulties. Persistent abdominal distension, Stool cultures remain pending. LLQ pain resolved. Gave patient referral to Colorectal physician for getting colonoscopy completed and to F/U with. Gave patient information to a GI physician at [place] to F/U with. IVFs stopped. (2) Diarrhea: Qualifiers: Diarrhea type: unspecified type Qualified Code(s): R19.7 - Diarrhea, unspecified Code(s): R19.7 - Diarrhea, unspecified Status: Acute Assessment and Plan: RESOLVED. Stool cultures remain pending. C-Diff + antigen and negative for Toxin. So not an active/current C.Diff infection. Added Probiotics to his medication regime. Stool occult (-) negative for blood. Advancing diet as tolerated. Had 3 BMs today, but no normal formed BM yet. (3) Abdominal distension: Code(s): R14.0 - Abdominal distension (gaseous) Status: Acute Assessment and Plan: BASELINE. CHRONIC. Ordered and attempted NG tube placement on 3 occasions. But patient has had extensive sinus/nasal reconstructive surgery due to past broken nose with deviated septum, and plastic dilator remains in his left nostril. Unable to pass a 16 Cameroonian or a 12 Cameroonian NG tubing. Encouraged patient to start ambulating hourly. Ordered CT scan without contrast as patient's abdomen remains extremely distended, taunt, and firm; intermittently sounds are hypoactive. Advancing his diet as tolerated. Encouraged patient to continue hourly ambulation. Started on daily Senna, Pepcid, Protonix, and Daily Metamucil fiber. (4) Acute renal failure: Code(s): N17.9 - Acute kidney failure, unspecified Status: Acute Assessment and Plan: RESOLVED. Creatinine and GFRs elevated at admission. Persistent low urine output. Renal lesions bilaterally foun
[2019-10-13] MEDS: FUROSEMIDE INJ 40 MG/4 ML VIAL IV PUSH (12:46)
--- NOTE | 2019-10-13 12:55 | PC.NURSE ---
Up in farrar walking, hermila hose in place
[2019-10-13 13:10] LABS: Glucose Point of Care 86 (65-105)
--- NOTE | 2019-10-13 13:49 | PC.NURSE ---
JARED bruce removed per patient request, states too tight
[2019-10-13] MEDS: metroNIDAZOLE 250 MG TABLET 500 MG PO ×2 (13:50→20:57)
[2019-10-13 13:59] LABS: Glucose Point of Care 104 (65-105)
--- NOTE | 2019-10-13 14:13 | PM.IMPN ---
Progress Note: A&P Assessment and Plan (1) Sepsis: Qualifiers: Hepatic coma status: without hepatic coma Sepsis acute organ dysfunction status: with acute organ dysfunction Sepsis type: sepsis due to unspecified organism Severe sepsis acute organ dysfunction type: acute liver failure Severe sepsis shock status: without septic shock Qualified Code(s): A41.9 - Sepsis, unspecified organism; R65.20 - Severe sepsis without septic shock; K72.00 - Acute and subacute hepatic failure without coma Code(s): A41.9 - Sepsis, unspecified organism Status: Acute Assessment and Plan: RESOLVED. Encouraged incentive spirometer. Continue on IV Zosyn , would Discharge on PO Cipro with PO Flagyl. Nausea and vomiting now controlled. No pain. Some burping and flatulence remains. Despite his frequent ambulation, clear liquid diet, and now normal lactate level and normal WBC levels; he continues to have a rounded, distended, taunt, intermittently hypoactive, and firm abdomen. notified by radiologist that we are unable to complete a Fluoroscopy small bowel follow through study or any study with barium. Will plan for a CT scan in the morning prior to discharge, after he advances to regular diet today. Will also repeat Lactic acid level in morning as well to confirm no worsening after restarting a regular diet. Today was the first day of a normal lactic level. LFTs have improved. LDH is normal. -unable to place NG due to previous Sinus reconstruction surgery No fevers noted. WBC was 14.9 at admission, then 17.3, and now 10.1 today. Repeating labs in morning. Patient reports 3 small BMs since Mag Citrate, but still not a normal formed BM. Weakness has resolved - he is ambulating around entire 2nd floor of hospital today with no difficulties. Persistent abdominal distension, Stool cultures remain pending. LLQ pain resolved. Gave patient referral to Colorectal physician for getting colonoscopy completed and to F/U with. Gave patient information to a GI physician at [place] to F/U with. IVFs stopped. (2) Diarrhea: Qualifiers: Diarrhea type: unspecified type Qualified Code(s): R19.7 - Diarrhea, unspecified Code(s): R19.7 - Diarrhea, unspecified Status: Acute Assessment and Plan: RESOLVED. Stool cultures remain pending. C-Diff + antigen and negative for Toxin. So not an active/current C.Diff infection. Added Probiotics to his medication regime. Stool occult (-) negative for blood. Advancing diet as tolerated. Had 3 BMs today, but no normal formed BM yet. (3) Abdominal distension: Code(s): R14.0 - Abdominal distension (gaseous) Status: Acute Assessment and Plan: BASELINE. CHRONIC. Ordered and attempted NG tube placement on 3 occasions. But patient has had extensive sinus/nasal reconstructive surgery due to past broken nose with deviated septum, and plastic dilator remains in his left nostril. Unable to pass a 16 Paraguayan or a 12 Paraguayan NG tubing. Encouraged patient to start ambulating hourly. Ordered CT scan without contrast as patient's abdomen remains extremely distended, taunt, and firm; intermittently sounds are hypoactive. Advancing his diet as tolerated. Encouraged patient to continue hourly ambulation. Started on daily Senna, Pepcid, Protonix, and Daily Metamucil fiber. (4) Acute renal failure: Code(s): N17.9 - Acute kidney failure, unspecified Status: Acute Assessment and Plan: RESOLVED. Creatinine and GFRs elevated at admission. Persistent low urine output. Renal lesions bilaterally found on CT scan. Lesions paired with ARF labs along with bilateral renal cortical thinning and atropy. Renal US bilaterally - no acute concerns noted on US. No hydronephrosis in either kidney. No stones identified. The bladder is normal. He will need to F/U with PCP to see if any more renal workup needs to be completed. Creatinine at admission
[2019-10-13 14:59] LABS: Glucose Point of Care 91 (65-105)
[2019-10-13 15:30] VITALS: BP 146/71; PULSE 61; RESP 18; TEMP 36.7; O2SAT 94
[2019-10-13] MEDS: FAMOTIDINE 20 MG/ISO 50 ML 20 MG/50 ML BAG 100 MG IVPB (18:00)
[2019-10-13 19:26] VITALS: BP 153/81; PULSE 99; RESP 18; TEMP 37.1; O2SAT 96
[2019-10-13] MEDS: CIPROFLOXACIN 500 MG TAB PO (20:58)
[2019-10-13] MEDS: SENNA/DOCUSATE SODIUM TABLET 1 TAB PO (20:58)
[2019-10-13 21:20] LABS: Glucose Point of Care 107 (65-105)
[2019-10-14] VITALS: BP 167/79; PULSE 92; RESP 20; TEMP 36.8; O2SAT 97
--- NOTE | 2019-10-14 02:25 | PC.NURSE ---
Ambulating in room with steady gait. Denies nausea and needs. Teaching provided and well received. Given fresh ice water.
--- NOTE | 2019-10-14 05:13 | PC.NURSE ---
Voided 625 in urinal and passed urine with a large loose stool in toliet.
[2019-10-14] MEDS: metroNIDAZOLE 250 MG TABLET 500 MG PO (06:02)
[2019-10-14] MEDS: LEVOTHYROXINE SODIUM 25 MCG TABLET 12.5 MCG PO (06:03)
[2019-10-14 07:20] VITALS: BP 169/82; PULSE 83; RESP 18; TEMP 36.4; O2SAT 97
[2019-10-14] MEDS: TERAZOSIN HCL 5 MG CAPSULE 10 MG PO (08:31)
[2019-10-14] MEDS: PANTOPRAZOLE SODIUM IV 40 MG VIAL IV PUSH (08:31)
[2019-10-14] MEDS: LORATADINE 10 MG TABLET PO (08:32)
[2019-10-14] MEDS: LOSARTAN POTASSIUM 25 MG TABLET PO (08:32)
[2019-10-14] MEDS: MONTELUKAST SODIUM 10 MG TABLET PO (08:32)
[2019-10-14] MEDS: POTASSIUM/PHOSPHORUS/SODIUM 1.5 GM PACKET 1 PACKET PO (08:32)
[2019-10-14] MEDS: predniSONE 5 MG TABLET PO (08:33)
[2019-10-14] MEDS: CIPROFLOXACIN 500 MG TAB PO (08:33)
[2019-10-14] MEDS: SALMET XINAFT/FLUTIC PROPIN 250 MCG/50 MCG INH CAP 1 PUFF INHALATION (08:34)
[2019-10-14] MEDS: FLUTICASONE PROPIONATE 0.05% NA SPR 16 GM BTL (*BKC) 2 SPRAY NASAL (08:34)
[2019-10-14] MEDS: SACCHAROMYCES BOULARDII 250 MG CAPSULE PO (08:34)
[2019-10-14] MEDS: IPRATROPIUM NASAL SPRAY 0.06% 15 ML BOTTLE 2 SPRAY NASAL (08:34)
[2019-10-14] MEDS: FINASTERIDE 5 MG TABLET PO (08:35)
[2019-10-14 08:37] LABS: Glucose Point of Care 94 (65-105)
[2019-10-14 09:21] LABS: Hematocrit 34.6 % (37.0-46.0); Hemoglobin 11.7 g/dL (12.4-15.3); Mean Corpuscular HGB Conc 33.8 g/dL (32.0-36.0); Mean Corpuscular Hemoglobin 30.7 pg (27.0-31.0); Mean Corpuscular Volume 90.8 fL (78.0-102.0); Platelet Count Result 212 K/mm3 (150-420); Red Blood Count 3.81 M/mm3 (4.70-6.10); White Blood Count 13.3 K/mm3 (4.8-10.8)
[2019-10-14 09:40] LABS: Alanine Aminotransferase 90 U/L (16-63); Albumin Level 3.2 g/dL (3.4-5.0); Alkaline Phosphatase 29 U/L (46-116); Anion Gap 13.5 mmol/L (7-16); Aspartate Amino Transferase 52 U/L (15-37); Blood Urea Nitrogen 10 mg/dL (7-18); Calcium 7.9 mg/dL (8.5-10.1); Carbon Dioxide 26 mmol/L (21-32); Chloride 104 mmol/L (98-108); Estimated CRCL calculation 58 ml/min; Estimated Glomerular Filt Rate > 60; Glucose 99 mg/dL (70-99); Osmolality Calculated 289 mOsm/kg (285-295); Potassium 3.5 mmol/L (3.5-5.1); Sodium 140 mmol/L (136-145); Total Protein 6.6 g/dL (6.4-8.2)
[2019-10-14] MEDS: FUROSEMIDE 40 MG TABLET PO (10:28)
[2019-10-14] MEDS: hydroCHLOROthiazide 12.5 MG CAPSULE PO (10:28)
[2019-10-14] MEDS: POTASSIUM CHLORIDE 20 MEQ TABLET 40 MEQ PO (10:29)
[2019-10-14] MEDS: FAMOTIDINE 20 MG TABLET PO (10:29)
--- NOTE | 2019-10-14 10:30 | PC.NURSE ---
Patient given medication per order. Took medication with no issues. Patient aware he is to be discharged home. Patient sitting up in chair resting. Denies any needs or questions at this time. Call light at side. States his son will be here at noon to pick him up.
--- NOTE | 2019-10-14 10:30 | PM.DS ---
DS: Diagnosis Admitting Diagnosis Admitting Diagnosis: Sepsis, unspecified organism Discharge Diagnosis (1) Sepsis: Qualifiers: Hepatic coma status: without hepatic coma Sepsis acute organ dysfunction status: with acute organ dysfunction Sepsis type: sepsis due to unspecified organism Severe sepsis acute organ dysfunction type: acute liver failure Severe sepsis shock status: without septic shock Qualified Code(s): A41.9 - Sepsis, unspecified organism; R65.20 - Severe sepsis without septic shock; K72.00 - Acute and subacute hepatic failure without coma Code(s): A41.9 - Sepsis, unspecified organism Status: Acute Assessment and Plan: RESOLVED. Encouraged incentive spirometer. Continue on IV Zosyn , would Discharge on PO Cipro with PO Flagyl. Nausea and vomiting now controlled. No pain. Some burping and flatulence remains. Despite his frequent ambulation, clear liquid diet, and now normal lactate level and normal WBC levels; Bowel sounds WNL and having BMs daily. Tolerating Regular Diet. notified by radiologist that we are unable to complete a Fluoroscopy small bowel follow through study or any study with barium. Will plan for a CT scan in the morning prior to discharge, after he advances to regular diet today. Will also repeat Lactic acid level in morning as well to confirm no worsening after restarting a regular diet. Today was the first day of a normal lactic level. LFTs have improved. LDH is normal. -unable to place NG due to previous Sinus reconstruction surgery No fevers noted. WBC was 14.9 at admission, then 17.3, and now 10.1 today. Repeating labs in morning. Patient reports 3 small BMs since Mag Citrate, but still not a normal formed BM. Weakness has resolved - he is ambulating around entire 2nd floor of hospital today with no difficulties. Persistent abdominal distension, Stool cultures remain pending. LLQ pain resolved. Gave patient referral to Colorectal physician for getting colonoscopy completed and to F/U with. Gave patient information to a GI physician at [facility] to F/U with. IVFs stopped. (2) Diarrhea: Qualifiers: Diarrhea type: unspecified type Qualified Code(s): R19.7 - Diarrhea, unspecified Code(s): R19.7 - Diarrhea, unspecified Status: Acute Assessment and Plan: RESOLVED. Stool cultures remain pending. C-Diff + antigen and negative for Toxin. So not an active/current C.Diff infection. Added Probiotics to his medication regime. Stool occult (-) negative for blood. Advancing diet as tolerated. Had 3 BMs today, but no normal formed BM yet. (3) Abdominal distension: Code(s): R14.0 - Abdominal distension (gaseous) Status: Acute Assessment and Plan: BASELINE. CHRONIC. Ordered and attempted NG tube placement on 3 occasions. But patient has had extensive sinus/nasal reconstructive surgery due to past broken nose with deviated septum, and plastic dilator remains in his left nostril. Unable to pass a 16 Indonesian or a 12 Indonesian NG tubing. Encouraged patient to start ambulating hourly. Ordered CT scan without contrast as patient's abdomen remains extremely distended, taunt, and firm; intermittently sounds are hypoactive. Advancing his diet as tolerated. Encouraged patient to continue hourly ambulation. Started on daily Senna, Pepcid, Protonix, and Daily Metamucil fiber. (4) Acute renal failure: Code(s): N17.9 - Acute kidney failure, unspecified Status: Acute Assessment and Plan: RESOLVED. Creatinine and GFRs elevated at admission. Persistent low urine output. Renal lesions bilaterally found on CT scan. Lesions paired with ARF labs along with bilateral renal cortical thinning and atropy. Renal US bilaterally - no acute concerns noted on US. No hydronephrosis in either kidney. No stones identified. The bladder is normal. He will need to F/U with PCP to see if any more renal workup needs to
--- NOTE | 2019-10-14 11:45 | PC.NURSE ---
IV site removed. Dressing applied to site. Pt. waiting on family member to arrive with clothing so he can change. Patient gathered all belongings together with no assist. Pt. denies any needs at present. Call light at side.
--- NOTE | 2019-10-14 12:40 | PC.NURSE ---
Patient dressed self with no issues. All belongings gathered together. All discharge instructions and education reviewed with patient. Pt. states understanding. Denies any further questions. Provided with discharge packet. Vytent son here to transport him home. Pt. left ambulatory accompanied by son. All home medications returned to patient.
--- NOTE | 2019-10-14 23:01 | PM.EVENT ---
Event Note Event Note Event Note: Patient states that she has been eating well and has had no further vomiting. She denies abdominal pain Abdomen is moderately distended but soft and nontender. Lungs are clear to auscultation heart exam reveals RRR without murmur or edema. Can discharge day with follow-up with primary care doctor. I have reviewed the chart and examined the patient. Discussed the patient's care with A Humberto CARDENAS and agree with her assessment and plan.
[2019-10-15 04:55] LABS: Hepatitis A Antibody IgM Nonreactive; Hepatitis B Core Antibody Nonreactive (Nonreactive); Hepatitis B Surface Antigen Nonreactive (Nonreactive); Hepatitis C Signal to Cutoff 0.01 ratio (<1.00); Hepatitis C Virus Antibody Nonreactive (Nonreactive)
--- NOTE | 2019-10-20 13:02 | PC.NURSE ---
Discharge call back [phone] understood discharge instructions both verbal and written. no further questions.
== END 2019-10-14 12:40 | disposition home or self-care (01) | DRG 871 ==
LOC: CHSED 10-10 01:22 → CHS2ND 10-10 01:48
PROVIDERS: Family Medicine; Nurse Practitioner; Admitting Provider Emergency Medicine; Emergency Provider Emergency Medicine; PCP Internal Medicine; Visit Provider Emergency Medicine
DX: A41.9 Sepsis, unspecified organism (principal); K72.00 Acute and subacute hepatic failure without coma; N17.9 Acute kidney failure, unspecified; R65.20 Severe sepsis without septic shock; K52.9 Noninfective gastroenteritis and colitis, unspecified; E11.649 Type 2 diabetes mellitus with hypoglycemia without coma; R14.0 Abdominal distension (gaseous); G47.33 Obstructive sleep apnea (adult) (pediatric); J45.909 Unspecified asthma, uncomplicated; K21.9 Gastro-esophageal reflux disease without esophagitis
CPT/HCPCS: 36415; 71045; 71250; 74176; 76770; 80053; 80074; 81001; 82150; 82947; 83036; 83605; 83615; 83690; 83735; 83880; 84100; 84443; 84484; 85025; 85027; 87040; 87045; 87046; 87070; 87086; 87088; 87177; 87205; 87209; 87269; 87272; 87324; 87427; 87804; 89055; 93005; 94640; 96361; 96365; 96375; 97161; 99284; 99285; A9270; C9113; J0696; J1940; J2405; J2543; J2765; J2930; J3475; J7030; J7512

== ENCOUNTER 2019-10-17 10:30 | Outpatient (CLI) | payer MEDICARE, SELFPAY ==
[2019-10-17 10:42] LABS: Hematocrit 37.4 % (37.0-46.0); Hemoglobin 12.7 g/dL (12.4-15.3); Mean Corpuscular Hemoglobin 30.8 pg (27.0-31.0); Mean Corpuscular Volume 90.6 fL (78.0-102.0); Mean Platelet Volume 9.3 fl (8.7-11.0); Platelet Count Result 261 K/mm3 (150-420); Red Blood Count 4.13 M/mm3 (4.70-6.10); Red Cell Distribution Width 13.5 % (11.6-14.4); White Blood Count 8.1 K/mm3 (4.8-10.8)
[2019-10-17 11:28] LABS: Alanine Aminotransferase 96 U/L (16-63); Albumin Level 3.4 g/dL (3.4-5.0); Alkaline Phosphatase 35 U/L (46-116); Aspartate Amino Transferase 64 U/L (15-37); Bilirubin,Total 0.7 mg/dL (0.00-1.00); Blood Urea Nitrogen 10 mg/dL (7-18); Calcium 8.9 mg/dL (8.5-10.1); Carbon Dioxide 29 mmol/L (21-32); Chloride 103 mmol/L (98-108); Estimated Glomerular Filt Rate 60; Glucose 110 mg/dL (70-99); Osmolality Calculated 292 mOsm/kg (285-295); Sodium 141 mmol/L (136-145); Total Protein 6.2 g/dL (6.4-8.2)
== END 2019-10-17 10:31 | disposition home or self-care (01) ==
LOC: CHSLAB 10:32
PROVIDERS: PCP Internal Medicine; Visit Provider Nurse Practitioner
DX: A41.9 Sepsis, unspecified organism (principal); R14.0 Abdominal distension (gaseous); N17.9 Acute kidney failure, unspecified; K52.9 Noninfective gastroenteritis and colitis, unspecified; E16.2 Hypoglycemia, unspecified
CPT/HCPCS: 36415; 80053; 85027

== ENCOUNTER 2022-12-26 15:16 | Outpatient (CLI) | payer MEDICARE, BC, SELFPAY ==
--- NOTE | ~2022-12-26 | XR_ITS ---
EXAMINATION: XR chest 2V Exam Date/Time: 12/26/2022 15:31 CDT HISTORY: URI, SINUSITIS, PRODUCTIVE COUGH ONE WEEK. Comparison: 10/09/2019; CTPA chest abdomen pelvis to 720. RESULT: Lines, tubes, and devices: None. Lungs and pleura: Mild senescent/emphysematous change, otherwise clear. Cardiomediastinal silhouette: Small left medial basal air cyst versus small hiatal hernia. Otherwise stable. Other: No acute osseous or upper abdominal finding. IMPRESSION: No acute cardiopulmonary process. Reviewed, dictated and finalized at location K.
[2022-12-26 15:42] LABS: Eosinophils Absolute Auto 0.15 K/mm3 (0.02-0.50); Eosinophils Percent Auto 1.5 % (1.0-6.0); Hematocrit 37.9 % (37.0-46.0); Hemoglobin 12.6 g/dL (12.4-15.3); Immature Granulocyte Absolute 0.07 K/mm3 (0.00-0.00); Immature Granulocyte Percent A 0.7 % (0.0-0.0); Lymphocytes Absolute Auto 1.09 K/mm3 (1.10-4.50); Lymphocytes Percent Auto 10.6 % (18.0-42.0); Mean Corpuscular HGB Conc 33.2 g/dL (32.0-36.0); Mean Corpuscular Hemoglobin 30.8 pg (27.0-31.0); Mean Corpuscular Volume 92.7 fL (78.0-102.0); Mean Platelet Volume 9.4 fl (8.7-11.0); Monocytes Absolute Auto 0.44 K/mm3 (0.10-0.90); Monocytes Percent Auto 4.3 % (2.0-11.0); Neutrophils Absolute Auto 8.4 K/mm3 (1.7-7.2); Neutrophils Percent Auto 81.9 % (50.0-70.0); Platelet Count Result 310 K/mm3 (150-420); Red Blood Count 4.09 M/mm3 (4.70-6.10); Red Cell Distribution Width 13.9 % (11.6-14.4); White Blood Count 10.3 K/mm3 (4.8-10.8)
[2022-12-26 16:04] LABS: Anion Gap 8 mmol/L (8-16); Blood Urea Nitrogen 15 mg/dL (7-18); Calcium 9.4 mg/dL (8.5-10.1); Carbon Dioxide 28 mmol/L (21-32); Chloride 103 mmol/L (98-108); Estimated Glomerular Filt Rate 59; Glucose 123 mg/dL (70-99); Osmolality Calculated 289 mOsm/kg (285-295); Potassium 4.5 mmol/L (3.5-5.1); Sodium 139 mmol/L (136-145)
[2022-12-26 16:16] LABS: Strep Group A RT-PCR NOT DETECTED (Negative)
[2022-12-26 16:19] LABS: Influenza A QL RT-PCR Negative (Negative); Influenza B QL RT-PCR Negative (Negative); SARS-CoV-2 RNA PCR Negative (Negative)
== END 2022-12-26 15:17 | disposition home or self-care (01) ==
LOC: CHSLAB 15:19
PROVIDERS: PCP Internal Medicine; Visit Provider Internal Medicine
DX: R05.9 Cough, unspecified (principal); J06.9 Acute upper respiratory infection, unspecified
CPT/HCPCS: 36415; 71046; 80048; 85025; 87636; 87651

== ENCOUNTER 2024-04-14 10:39 | Outpatient (CLI) | payer MEDICARE, SELFPAY ==
--- NOTE | ~2024-04-14 | US_ITS ---
EXAMINATION: US thyroid DATE: 04/14/2024 11:06 INDICATION: Hypothyroidism. TECHNIQUE: Multiple ultrasound images of the thyroid were obtained. COMPARISON: None. FINDINGS: The right thyroid lobe measures 3.5 x 1.2 x 1.1 cm. The left thyroid lobe measures 3.3 x 1.5 x 1.1 c m. There is normal echotexture and echogenicity throughout the thyroid gland. No discrete nodules id entified. Normal vascular flow is present. IMPRESSION: 1. Normal thyroid. Reviewed, dictated and finalized at location A. IMPRESSION: 1. Normal thyroid.
== END 2024-04-14 10:40 | disposition home or self-care (01) ==
LOC: CHSIMG 10:43
PROVIDERS: PCP Internal Medicine; Visit Provider Internal Medicine
DX: E03.9 Hypothyroidism, unspecified (principal)
CPT/HCPCS: 76536

== ENCOUNTER 2024-07-11 09:41 | Outpatient (CLI) | payer MEDICARE, SELFPAY ==
--- NOTE | ~2024-07-11 | XR_ITS ---
Cervical Spine: AP, lateral, open-mouth views Clinical History: Pain Findings: There is reversal normal cervical lordosis. There is 4 mm anterolisthesis of C4 over C5. Th ere is advanced degenerative disc narrowing at C5-C6 and C6-C7. There is advanced facet arthropathy t hroughout the cervical spine. Impression: Advanced degenerative spondylosis, as above. 4 mm retrolisthesis of C4 over C5. Reviewed, dictated and finalized at location . R SHOP HELPER Impression: Advanced degenerative spondylosis, as above. 4 mm retrolisthesis of C4 over C5.
== END 2024-07-11 09:42 | disposition home or self-care (01) ==
LOC: CHSIMG 09:44
PROVIDERS: PCP Internal Medicine; Visit Provider Internal Medicine
DX: I65.23 Occlusion and stenosis of bilateral carotid arteries (principal); M54.2 Cervicalgia; M43.02 Spondylolysis, cervical region
CPT/HCPCS: 72040

== ENCOUNTER 2024-07-18 07:11 | Outpatient (CLI) | payer MEDICARE, SELFPAY ==
--- NOTE | ~2024-07-18 | US_ITS ---
EXAMINATION: US carotid duplex BI DATE: 07/18/2024 07:34 INDICATION: Carotid stenosis TECHNIQUE: Grayscale, color Doppler, and pulsed Doppler images of the cervical carotid arteries were obtained. The degree of vessel stenosis is placed in one of the following categories: normal, <50%, 5 0-69%, >=70% but less than near-occlusion, near-occlusion, or total occlusion. Note that percent sten osis relative to normal distal artery lumen diameter is indirectly measured from velocity measurement s as described by Andrew, et al. Radiology 2003; [id number]. COMPARISON: None. FINDINGS: RIGHT: The right common carotid artery (CCA) peak systolic velocity (PSV) is 94 cm/s. The right internal car otid artery (ICA) PSV is 64 cm/s. The right ICA end-diastolic velocity (EDV) is 16 cm/s. The right IC A/CCA PSV ratio is 0.7. Grayscale and color Doppler images yield an estimate of <50% diameter reducti on from plaque in the ICA. The external carotid artery (ECA) PSV is 102 cm/s. There is antegrade flow in the right vertebral artery. LEFT: The left CCA PSV is 82 cm/s. The left ICA PSV is 64 cm/s. The left ICA EDV is 19 cm/s. The left ICA/C CA PSV ratio is 0.8. Grayscale and color Doppler images yield an estimate of <50% diameter reduction from plaque in the ICA. The ECA PSV is 124 cm/s. There is antegrade flow in the left vertebral artery . IMPRESSION: 1. <50% stenosis in the right internal carotid artery. 2. <50% stenosis in the left internal carotid artery. Reviewed, dictated and finalized at location B. RVISOR FACEPIECE LINE
== END 2024-07-18 07:12 | disposition home or self-care (01) ==
LOC: CHSIMG 07:15
PROVIDERS: PCP Internal Medicine; Visit Provider Internal Medicine
DX: M54.2 Cervicalgia (principal); I65.23 Occlusion and stenosis of bilateral carotid arteries
CPT/HCPCS: 93880

== ENCOUNTER 2025-01-23 10:31 | Emergency (ER) | payer MEDICARE, SELFPAY ==
--- NOTE | ~2025-01-23 | XR_ITS ---
3 VIEWS LUMBAR SPINE Ordering provider: Corby Mchugh MD History: . Low back pain radiates down Rt. leg x3 days, NKI . Comparison: None. FINDINGS: VERTEBRAL BODIES: No visible fracture or subluxation. DISK SPACES: Narrowing of the disc L5-S1. Facet joint disease at the level of L5-S1 with possible spondylolysis. SOFT TISSUES: Atherosclerotic changes of the aorta. Bilateral sacroiliacs. IMPRESSION: No acute osseous abnormality lumbar spine. Degenerative disc disease at the level of L5-S1. Facet joint disease at the same level with possible spondylolysis. Reviewed, dictated and finalized at location A.
[2025-01-23 10:33] VITALS: BP 167/78; PULSE 63; RESP 18; TEMP 36.6; O2SAT 99
--- NOTE | 2025-01-23 10:40 | ED.BACK ---
HPI - Back Pain/Injury General Chief Complaint: Back Pain/Injury Stated Complaint: back pain Time Seen by Provider: 01/23/25 10:40 Source: patient Mode of arrival: ambulatory Limitations: no limitations History of Present Illness HPI Narrative: patient is a 79-year-old male with right lower back pain which radiates down his right buttocks into the foot on the right side posteriorly. He has had sciatica before and this is similar pain. The pain is sharp and radiating and shooting. No definite injury. MD elicited complaint: back pain Pertinent past history: prior back pain and other ( Diabetes 2, hypertension) Onset (ago): day(s) ( 3) Timing: constant Severity: moderate Pain scale (0-10): 8 Similar Symptoms Previously: Yes Quality: burning, sharp and tingling Location: lumbar spine ( right side) and right lower back Radiation: buttocks ( right side) and right leg below the knee Exacerbating factors: movement, sitting upright and walking Relieving factors: immobilization and supine Context: other ( patient had onset of right lower back pain down to the right foot 3 days ago with sciatica like changes per patient) Associated symptoms: denies other symptoms Treatments prior to arrival: heat therapy, NSAIDS and acetaminophen Related Data Home Medications ?Medication ?Instructions ?Recorded ?Confirmed ?Last Taken ?Type albuterol sulfate 90 mcg/actuation 2 puff inhalation BID 09/04/19 10/09/19 Unknown History aerosol inhaler (Ventolin HFA) finasteride 5 mg tablet 5 mg PO DAILY 09/04/19 10/09/19 Unknown History fluticasone 250 mcg-salmeterol 50 1 inhalation inhalation BID 09/04/19 10/09/19 Unknown History mcg/dose blistr powdr for inhalation (Advair Diskus) fluticasone propionate 50 2 spray intranasal BID 09/04/19 10/09/19 Unknown History mcg/actuation nasal spray,suspension furosemide 40 mg tablet (Lasix) 40 mg PO QAM 09/04/19 10/09/19 Unknown History hydrochlorothiazide 12.5 mg tablet 12.5 mg PO DAILY 09/04/19 10/09/19 Unknown History ipratropium bromide 42 mcg (0.06 2 spray intranasal BID 09/04/19 10/09/19 Unknown History %) nasal spray losartan 25 mg tablet 25 mg PO DAILY 09/04/19 10/09/19 Unknown History meloxicam 15 mg tablet 15 mg PO HS 09/04/19 10/09/19 Unknown History montelukast 10 mg tablet 10 mg PO DAILY 09/04/19 10/09/19 Unknown History omeprazole 40 mg capsule,delayed 40 mg PO DAILY 09/04/19 10/09/19 Unknown History release potassium chloride 10 mEq 10 meq PO DAILY 09/04/19 10/09/19 Unknown History capsule,extended release prednisolone 5 mg tablet 5 mg PO DAILY 09/04/19 10/09/19 Unknown History terazosin 10 mg capsule 10 mg PO DAILY 09/04/19 10/09/19 Unknown History testosterone cypionate 200 mg/mL 200 mg IM MONTHLY 09/04/19 10/09/19 Unknown History intramuscular oil Allergies Allergy/AdvReac Type Severity Reaction Status Date / Time shellfish derived Allergy Mild Unknown Verified 11/10/21 12:14 Review of Systems Review of Systems: All systems reviewed & are unremarkable except as noted in HPI and below Constitutional: Constitutional: Reports no additional constitutional complaints Eyes: Eyes: Reports no additional eye complaints ENT: Reports system reviewed and no additional complaints, except as documented Cardiovascular: Cardiovascular: Reports no additional cardiovascular complaints Respiratory: Respiratory: Reports no additional respiratory complaints Gastrointestinal: Gastrointestinal: Reports no additional gastrointestinal complaints Genitourinary: Genitourinary: Reports no additional male genitourinary complaints Musculoskeletal: Musculoskeletal: Reports no additional musculoskeletal complaints Integumentary/Breasts: Skin/Breast: Reports system reviewed and no additional complaints, except as docu Neurologic: Reports system reviewed and no additional complaints, except as documented Psychiatric: Psychiatric: Reports no additional psychiatric complaints Endocrine: Endocrine: Reports no additional endocrine complaints Hematologic/Lymphatic: Hematologic/Lymphatic: Reports no additional hematologic/lymphatic complaints Allergic/Immunologic: Allergic/Immunologic: Reports no additional allergic/immunologic complaints PENDING SALE TO [facility] Past Medical History Medical History (Updated 01/23/25 @ 11:29 by Corby Mchugh MD) Hyperlipidemia GERD (gastroesophageal reflux disease) Asthma Shortness of breath Type 2 diabetes mellitus Obstructive sleep apnea Social History Social History Smoking packs per day: 2.5 Smoking cigarettes per day: 50.0 Years smoked: 30 Smoking pack-years: 75.00 Smoking status: Former smoker Tobacco type: cigarettes Smoking end date: 09/03/88 Alcohol intake: former Substance use: never Gender identity (if verbalized by the patient): Male Spiritual care concerns: No Agree to blood products: Yes Exam Const: General: healthy appearing Nutritional Appearance: well nourished Orientation/consciousness: patient oriented x3 Limitations: no limitations Other: patient appears to be in pain HENMT: Head: normal to inspection Ears: external ears normal Face/Nose/Sinus: Normal external nose present Eyes: Conjunctivae: conjunctivae normal Pupils: Equal, round and reactive pupils present EOM: EOMs intact bilaterally Neck: Neck: normal visual inspection Chest: Chest palpation & inspection: normal inspection of the chest Resp: Effort & Inspection: normal respiratory effort and not labored Auscultation: clear to auscultation bilaterally and no crackles Cardio: Rate: regular rate Rhythm: regular rhythm Heart sounds: no murmurs GI: Inspection: non-distended GI Palp: Yes Soft to palpation and No Tenderness to palpation present (GI) Auscultation: normal bowel sounds : General: Yes bladder normal to palpation Back/Spine/Pelvis: Back: no CVA tenderness Other: straight leg test positive on the right side at 20?; somewhat tender right lower spine paraspinal area Skin: General skin exam: normal color Rashes: no rashes Wounds: no wounds Neuro: General: patient oriented x3, moves all extremities, no meningeal signs, no focal motor deficits and CN's II-XI intact bilaterally Cranial nerves: Yes Nystagmus not present Speech: normal speech Gait exam (Neuro): gait abnormal ( difficulty walking due to right lower back pain and sciatica down the righ) Extrem: General: normal to inspection Psych: Mental Status: mental status grossly normal Affect: normal affect Attitude: cooperative Course Vital Signs Vital signs: Vital Signs Temperature 36.6 C 01/23/25 10:33 Pulse Rate 63 01/23/25 10:33 Respiratory Rate 18 01/23/25 10:33 Blood Pressure 167/78 H 01/23/25 10:33 Pulse Oximetry 99 01/23/25 10:33 Oxygen Delivery Room Air 01/23/25 10:33 Temperature 36.6 C 01/23/25 10:33 Pulse Rate 63 01/23/25 10:33 Respiratory Rate 18 01/23/25 10:33 Blood Pressure 167/78 H 01/23/25 10:33 Pulse Oximetry 99 01/23/25 10:33 Oxygen Delivery Room Air 01/23/25 10:33 MDM - Back Pain/Injury MDM Narrative Medical decision making narrative: patient is a 79-year-old male with right lower back pain with sciatica. We will do a triple treatment concoction for the patient at this time and an x-ray. Imaging Data Attestation: I personally reviewed and interpreted this imaging study as follows: Radiologist's impression: X-ray lumbar spine is negative for acute process but does show much chronic changes Discharge Plan Discharge Clinical Impression: Lumbar radiculopathy Sciatica Qualifiers: Laterality: right Qualified Code(s): M54.31 - Sciatica, right side Patient Disposition: Home Condition: Stable Instructions: Sciatica (ED), Acute Low Back Pain (ED) Patient Language: [place] Prescriptions: New hydrocodone-acetaminophen 5-325 mg tablet 1 tablet PO Q8H PRN (Reason: pain) Qty: 20 0RF prednisone 20 mg tablet 20 mg PO DAILY 3 Days Qty: 3 0RF diazepam [Valium] 2 mg tablet 2 mg PO BID PRN (Reason: muscle spasm) Qty: 10 0RF No Action sennosides-docusate sodium [Senokot-S] 8.6-50 mg Tablet 1 tab PO HS 30 Days 0RF metronidazole 250 mg Tablet 500 mg PO Q8HR 7 Days Qty: 42 0RF ciprofloxacin HCl 500 mg Tablet 500 mg PO Q12HR 7 Days Qty: 14 0RF levothyroxine 25 mcg Tablet 12.5 mcg PO DAILY@0630 30 Days Qty: 15 0RF famotidine 20 mg Tablet 20 mg PO Q12HR 30 Days Qty: 60 0RF pantoprazole 40 mg Tablet,Delayed Release (Dr/Ec) 40 mg PO QAM 30 Days Qty: 30 0RF loratadine 10 mg Tablet 10 mg PO QAM 30 Days Qty: 30 0RF sodium chloride [Saline Mist] 0.65 % Aerosol,[place] 1 spray intranasal Q2H PRN (Reason: Congestion) 30 Days 0RF Florastor 250 mg Capsule 250 mg PO BID 30 Days Qty: 60 0RF Metamucil (with sugar) 3.4 gram Powder In Packet 1 packet PO QAM 30 Days 0RF alprazolam [Xanax] 0.5 mg tablet 0.5 mg PO DAILY PRN (Reason: anxiety) Qty: 0 0RF (DME) blood-glucose meter Misc See Rx Instructions .ROUTE .MEDSUPPLY Qty: 1 0RF Rx Instructions: As directed (DME) blood-glucose meter Kit See Rx Instructions .ROUTE .MEDSUPPLY Qty: 1 0RF Rx Instructions: As directed (DME) blood-glucose meter Kit See Rx Instructions .ROUTE .MEDSUPPLY Qty: 1 0RF Rx Instructions: As directed (DME) Blood Glucose Test Strip See Rx Instructions .ROUTE .MEDSUPPLY Qty: 10 0RF Rx Instructions: As directed (DME) lancets-blood glucose strips 30 gauge combo pack See Rx Instructions .ROUTE .MEDSUPPLY Qty: 200 0RF Rx Instructions: As directed (DME) blood-glucose meter Misc See Rx Instructions .ROUTE .MEDSUPPLY Qty: 1 0RF Rx Instructions: Blood Glucose METER for Testing QDay (Daily) (DME) Blood Glucose Test Strip See Rx Instructions .ROUTE .MEDSUPPLY Qty: 100 3RF Rx Instructions: Blood Glucose Testing Strips (Daily) ([facility] [place] lancets-blood glucose strips 30 gauge combo pack See Rx Instructions .ROUTE .MEDSUPPLY Qty: 100 3RF Rx Instructions: Blood Glucose Lancets (Daily testing) fluticasone propion-salmeterol [Advair Diskus] 250-50 mcg/dose blister with device 1 inhalation INHALATION BID terazosin 10 mg capsule 10 mg PO DAILY testosterone cypionate 200 mg/mL oil 200 mg IM MONTHLY omeprazole 40 mg capsule,delayed release(DR/EC) 40 mg PO DAILY finasteride 5 mg tablet 5 mg PO DAILY fluticasone propionate 50 mcg/actuation spray,suspension 2 spray NASAL BID potassium chloride 10 mEq capsule, extended release 10 meq PO DAILY albuterol sulfate [Ventolin HFA] 90 mcg/actuation HFA aerosol inhaler 2 puff INHALATION BID furosemide [Lasix] 40 mg tablet 40 mg PO QAM montelukast 10 mg tablet 10 mg PO DAILY ipratropium bromide 42 mcg (0.06 %) spray,non-aerosol 2 spray NASAL BID meloxicam 15 mg tablet 15 mg PO HS prednisolone 5 mg tablet 5 mg PO DAILY losartan 25 mg tablet 25 mg PO DAILY hydrochlorothiazide 12.5 mg tablet 12.5 mg PO DAILY Follow-up/Referrals: Amor Camarillo MD [Primary Care Provider] - Time of Disposition: 11:37
[2025-01-23] MEDS: predniSONE 20 MG TABLET PO (10:51)
[2025-01-23] MEDS: HYDROcodone/acetaminophen (*CRX) 5-325 MG TABLET 1 TAB PO (10:51)
[2025-01-23] MEDS: KETOROLAC 30 MG/ML VIAL (*BKC) IM (10:52)
--- NOTE | 2025-01-23 11:01 | PC.NURSE ---
Pt taken to radiology
--- NOTE | 2025-01-23 11:05 | PC.NURSE ---
Pt returns from Radiology
== END 2025-01-23 11:48 | disposition home or self-care (01) ==
PROVIDERS: Emergency Provider Emergency Medicine; PCP Internal Medicine
DX: M54.16 Radiculopathy, lumbar region (principal); M54.31 Sciatica, right side; I10 Essential (primary) hypertension; E11.9 Type 2 diabetes mellitus without complications; Z87.891 Personal history of nicotine dependence
CPT/HCPCS: 72100; 96372; 99283; A9270; J1885; J7512